=== PATIENT | male | born 1965 | race Caucasian/White ===

== ENCOUNTER 2018-11-13 09:36 | Day surgery (SDC) | payer BC, OTHER ==
[2018-11-13 10:32] VITALS: BMI 27.6
[2018-11-13 11:32] VITALS: TEMP 97.8
[2018-11-13 12:38] VITALS: BP 138/86; PULSE 57
--- NOTE | 2018-11-18 08:58 | PATH ---
Surgical Pathology Report Patient Name: HI BECKER [facility]. Rec. #: [id number] /Age/Gender: 1965 (Age: 53) / M Account: [id number] Location: [facility]-ENDOSCOPY Taken: 11/13/2018 Received: 11/13/2018 Reported: 11/18/2018 Physicians: Stanley Tidwell D.O. Specimen(s) Received A: BX ANTRAL EROSION B: BX ANGURIS/BODY C: BX DISTAL ESOPHAGUS Clinical History None Provided Final Diagnosis A. ANTRUM EROSION, BIOPSY: GASTRIC MUCOSA WITH ACUTE AND CHRONIC GASTRITIS AND INTESTINAL METAPLASIA. REACTIVE GASTROPATHY PRESENT. IMMUNOSTAIN FOR H. PYLORI IS NEGATIVE. NEGATIVE FOR DYSPLASIA. B. ANGULARIS/BODY, BIOPSY: GASTRIC MUCOSA WITH CHRONIC GASTRITIS AND INTESTINAL METAPLASIA. REACTIVE GASTROPATHY PRESENT. IMMUNOSTAIN FOR H. PYLORI IS NEGATIVE. NEGATIVE FOR DYSPLASIA. C. DISTAL ESOPHAGUS, BIOPSY: ESOPHAGEAL MUCOSA WITH CHANGES CONSISTENT WITH REFLUX ESOPHAGITIS. NEGATIVE FOR INTESTINAL METAPLASIA. Electronically Signed Eufemia Branham M.D. Microscopic Description Acid reflux Gross Description A. Received in formalin, labeled "antrum erosion" are 2 abebe, irregular portions of soft tissue measuring 0.3 cm. in greatest dimension. The specimens are submitted in toto in one cassette. B. Received in formalin, labeled "angularis/body" are 4 abebe, irregular portions of soft tissue measuring 0.3 cm. in greatest dimension. The specimens are submitted in toto in one cassette. C. Received in formalin, labeled distal esophagus" are 2 abebe, irregular portions of soft tissue measuring 0.3 cm. in greatest dimension. The specimens are submitted in toto in one cassette.
== END 2018-11-13 12:30 | disposition home or self-care (01) ==
LOC: JASU-ENDO 09:36
PROVIDERS: ATTEND Internal Medicine Gastroenterology
PROC: 0DB68ZX Excision of Stomach, Via Natural or Artificial Opening Endoscopic, Diagnostic (ICD-10-PCS; 2018-11-13)
PROC: 0DB38ZX Excision of Lower Esophagus, Via Natural or Artificial Opening Endoscopic, Diagnostic (ICD-10-PCS; principal; 2018-11-13 10:30)
DX: K21.0 Gastro-esophageal reflux disease with esophagitis (principal); K25.9 Gastric ulcer, unspecified as acute or chronic, without hemorrhage or perforation
CPT/HCPCS: 88305-TC; 88342-TC